=== PATIENT | female | born 1985 | race Caucasian/White ===

== ENCOUNTER 2018-05-08 10:08 | Emergency (ER) | payer BC ==
[~2018-05-08] VITALS: Ht 177.8 cm; Wt 191.4 kg
[~2018-05-08 10:08] MED LIST: ANTIBIOTIC UNKNOWN; ATIVAN 0.50.5 MG/TAB PO; BACTRIM DS 8001 TAB PO; BUSPIRONE; CEPHALEXIN PO; DEPO-TESTOS100 MG/ML IM; DIFLUCAN150 MG PO; EC NAPROSYN500 MG PO; GLUCOPHAGE500 MG/TAB PO; LEVAQUIN 5500 MG/TAB PO; LEVOXYL0.025 MG PO; LORTAB 5/500 501 TAB PO; NO HOME MEDICATIONS; NORCO 325 MG-51 TAB PO; NORCO 325 MG-7.1 TAB PO; OMNICEF 300MG300 MG PO; PEPCID 20MG TAB20 MG PO; PERCOCET 325 MG1 TA2 PO; PERCOCET 5/321 UDTAB PO; PHENERGAN 25 TA25 MG PO; PREDNISONE20 MG PO; PRINZIDE 25 MG-1 TAB PO; PYRIDIUM 100MG100 MG PO; TESTOSTERON IM; WELLBUTRIN 100100 MG PO; WELLBUTRIN XL150 MG PO; ZITHROMAX 250M250 MG PO; ZOFRAN 4MG T4 MG/TAB PO
[2018-05-08 10:18] VITALS: TEMP 98.5
[2018-05-08 10:48] LABS: BASO # 0.1 (0.0-0.2); BASO % 0.4 % (0.0-2.0); EOS # 0.2 (0.0-0.7); EOS % 1.8 % (0-4.0); GRAN # 8.6 (1.4-6.5); GRAN % 70.3 % (42.2-75.2); HEMATOCRIT 40.2 % (37.0-47.0); HEMOGLOBIN 13.2 g/dl (12.5-16.0); LYMPH % 24.7 % (20.0-51.0); MEAN CELL VOLUME 83 fl (80.0-100.0); MEAN CORPUSCULAR HEMOGLOBIN 27 pg (27.0-31.0); MEAN CORPUSCULAR HGB CONC 33 g/dl (33.0-37.0); MEAN PLATELET VOLUME 10.1 fl (7.4-10.4); MONO # 0.3 (0.1-0.6); MONO % 2.5 % (1.7-9.3); PLATELET COUNT 314 K/mm3 (130-400); RED BLOOD COUNT 4.82 M/mm3 (4.10-5.30); REDCELL DISTRIBUTION WIDTH-CV 12.8 % (11.5-14.5)
[2018-05-08 10:56] LABS: PROTHROMBIN TIME 11.5 SECONDS (9.7-12.8)
[2018-05-08 10:59] LABS: PARTIAL THROMBOPLASTIN TIME 31.1 SECONDS (26.0-37.0)
[2018-05-08 11:06] LABS: ALANINE AMINOTRANSFERASE 43 U/L (9-52); ALKALINE PHOSPHATASE 108 U/L (50-136); ANION GAP 6 mmol/L (7-16); AST,SGOT 29 U/L (15-37); BILIRUBIN,TOTAL 0.6 mg/dL (0.0-1.0); BLOOD UREA NITROGEN 11 mg/dL (7-17); CALCIUM 8.7 mg/dL (8.4-10.2); CARBON DIOXIDE 29 mmol/L (22-30); CHLORIDE 101 mmol/L (98-107); CREATININE, serum 0.51 mg/dL (0.52-1.25); GLUCOSE 347 mg/dL (74-106); POTASSIUM 3.6 mmol/L (3.4-5.0); SODIUM 136 mmol/L (137-145); TOTAL PROTEIN 7.9 gm/dL (6.4-8.2)
[2018-05-08 11:17] LABS: TROPONIN-I < 0.012 ng/mL (0.000-0.034)
[2018-05-08] MEDS ORDERED: GLUCOPHAGE850 MG/TAB PO (11:32)
[2018-05-08 12:03] VITALS: BP 133/77; PULSE 97
== END 2018-05-08 12:03 | disposition home or self-care (01) ==
LOC: COL.ER 10:08
PROVIDERS: Family Medicine
DX: K21.9 Gastro-esophageal reflux disease without esophagitis (principal); Z79.84 Long term (current) use of oral hypoglycemic drugs
CPT/HCPCS: C9113

== ENCOUNTER 2019-04-04 15:40 | Emergency (ER) | payer BC ==
[~2019-04-04] VITALS: Ht 177.8 cm; Wt 193.8 kg
[~2019-04-04 15:40] MED LIST changes: +GLUCOPHAGE850 MG/TAB PO
[2019-04-04 15:56] VITALS: BP 141/81; TEMP 96.9
[2019-04-04 17:21] VITALS: PULSE 91
== END 2019-04-04 17:21 | disposition home or self-care (01) ==
LOC: COL.ER 15:40 → EDSEX 15:41 → COL.ER 17:21
DX: H57.12 Ocular pain, left eye (principal); E11.9 Type 2 diabetes mellitus without complications; Z79.84 Long term (current) use of oral hypoglycemic drugs

== ENCOUNTER 2019-05-09 16:57 | Emergency (ER) | payer BC ==
[~2019-05-09] VITALS: Ht 180.3 cm; Wt 193.6 kg
[2019-05-09 17:27] VITALS: BP 140/87; TEMP 99.9
[2019-05-09] MEDS ORDERED: TAMIFLU 75MG75 MG PO (19:43)
[2019-05-09 19:50] VITALS: PULSE 111
== END 2019-05-09 19:55 | disposition home or self-care (01) ==
LOC: COL.ER 16:57 → EDSEX 16:59 → COL.ER 16:59
DX: J11.1 Influenza due to unidentified influenza virus with other respiratory manifestations (principal); E11.9 Type 2 diabetes mellitus without complications

== ENCOUNTER 2019-06-28 11:21 | Emergency (ER) | payer BC ==
[~2019-06-28] VITALS: Ht 180.3 cm; Wt 192.7 kg
[~2019-06-28 11:21] MED LIST changes: +TAMIFLU 75MG75 MG PO
[2019-06-28 11:45] VITALS: BP 139/82; TEMP 98
[2019-06-28 14:26] LABS: BASO # 0.1 (0.0-0.2); BASO % 0.5 % (0.0-2.0); EOS # 0.3 (0.0-0.7); GRAN # 6.7 (1.4-6.5); GRAN % 67.2 % (42.2-75.2); HEMOGLOBIN 11.9 g/dl (12.5-16.0); LYMPH # 2.5 (1.2-3.4); LYMPH % 25.2 % (20.0-51.0); MEAN CELL VOLUME 86 fl (80.0-100.0); MEAN CORPUSCULAR HEMOGLOBIN 28 pg (27.0-31.0); MEAN CORPUSCULAR HGB CONC 33 g/dl (33.0-37.0); MEAN PLATELET VOLUME 9.7 fl (7.4-10.4); MONO # 0.4 (0.1-0.6); PLATELET COUNT 340 K/mm3 (130-400); RED BLOOD COUNT 4.27 M/mm3 (4.10-5.30); REDCELL DISTRIBUTION WIDTH-CV 13.5 % (11.5-14.5)
[2019-06-28 14:44] LABS: HEMATOCRIT 36.5 % (37.0-47.0)
[2019-06-28 15:10] VITALS: PULSE 86
[2019-06-28 15:16] LABS: ALBUMIN 4.2 gm/dL (3.5-5.0); BILIRUBIN,TOTAL 0.4 mg/dL (0.0-1.0); CALCIUM 9.2 mg/dL (8.4-10.2); CREATININE, serum 0.56 (0.52-1.25); TOTAL PROTEIN 8.3 gm/dL (6.4-8.2)
== END 2019-06-28 15:10 | disposition home or self-care (01) ==
LOC: COL.ER 11:21
PROVIDERS: Family Medicine
DX: M25.562 Pain in left knee (principal)

== ENCOUNTER 2019-06-30 12:25 | Emergency (ER) | payer BC ==
[~2019-06-30] VITALS: Ht 177.8 cm; Wt 192.7 kg
[2019-06-30 12:28] VITALS: TEMP 98.6
[2019-06-30] MEDS ORDERED: THE MEDICINE S200 M2 PO (12:33)
[2019-06-30] MEDS ORDERED: EPA FISH OIL1 SGL PO (12:34)
[2019-06-30] MEDS ORDERED: [UNRECOGNIZED DRUG - OTHER] (12:34)
[2019-06-30] MEDS ORDERED: FLAGYL500 MG (12:35)
[2019-06-30] MEDS ORDERED: FLEXERIL 1010 MG/TAB PO (13:23)
[2019-06-30 13:50] VITALS: BP 147/83; PULSE 94
== END 2019-06-30 13:50 | disposition home or self-care (01) ==
LOC: COL.ER 12:25
DX: M79.18 Myalgia, other site (principal); F32.9 Major depressive disorder, single episode, unspecified

== ENCOUNTER 2019-10-07 10:47 | Emergency (ER) | payer BC ==
[~2019-10-07] VITALS: Ht 177.8 cm; Wt 190.9 kg
[~2019-10-07 10:47] MED LIST changes: +EPA FISH OIL1 SGL PO; +FLAGYL500 MG; +FLEXERIL 1010 MG/TAB PO; +THE MEDICINE S200 M2 PO; +[UNRECOGNIZED DRUG - OTHER]
[2019-10-07 10:53] VITALS: TEMP 98.1
[2019-10-07 12:43] VITALS: BP 145/65; PULSE 89
== END 2019-10-07 12:36 | disposition home or self-care (01) ==
LOC: COL.ER 10:47
DX: G43.909 Migraine, unspecified, not intractable, without status migrainosus (principal); Z90.49 Acquired absence of other specified parts of digestive tract
CPT/HCPCS: J1200; J1885; J2550; J2765; J7030